=== PATIENT | female | born 1995 | race Two or more races ===

== ENCOUNTER 2025-01-07 20:51 | Emergency (ER) | payer MEDICAID, SELFPAY ==
[2025-01-07 20:53] VITALS: BMI 33.8
[2025-01-07 20:57] VITALS: BP 121/60; PULSE 118; RESP 22; TEMP 36.3; O2SAT 100
--- NOTE | 2025-01-07 21:04 | PD.EDRME ---
Rapid Medical Screening Exam RME Arrival date/time: 01/07/25 20:51 29 yo f present to ED for c/o of n/v I have greeted and performed a focused initial assessment of this patient. A comprehensive ED assessment and evaluation of the patient, analysis of all test results, and completion of the medical decision making process will be conducted by additional ED providers. Chief Complaint: Nausea/Vomiting/Diarrhea Time Seen by Provider: 01/07/25 20:54 Vital signs: Vital Signs Temperature 97.4 F 01/07/25 20:57 Pulse Rate 118 H 01/07/25 20:57 Respiratory Rate 22 H 01/07/25 20:57 Blood Pressure 121/60 01/07/25 20:57 Pulse Oximetry (%) 100 01/07/25 20:57 Oxygen Delivery Method Room Air 01/07/25 20:57
[2025-01-07] MEDS: ONDANSETRON ODT 4 MG TABRAP 8 MG PO (21:20)
[2025-01-07 21:42] LABS: Basophils % (Auto) 0 % (0-2.5); Eosinophils % (Auto) 0 % (0-10); Hematocrit 42.5 % (36.0-46.0); Immature Granulocytes % (Auto) 0 % (0-0); Immature Granulocytes Auto 0.04 Thou/mm3 (0.00-0.00); Lymphocytes # (Auto) 1.1 Thou/mm3 (1.0-4.8); Lymphocytes % (Auto) 7 % (10-50); Mean Corpuscular HGB Conc 35.3 g/dl (31.0-37.0); Mean Corpuscular Hemoglobin 30.9 pg (25.0-35.0); Mean Corpuscular Volume 87 fL (80-100); Monocytes # (Auto) 0.3 Thou/mm3 (0.0-0.8); Monocytes % (Auto) 2 % (0-12); Neutrophils # (Auto) 13.9 Thou/mm3 (1.8-7.7); Neutrophils % (Auto) 90 % (37-80); Nucleated Red Blood Cell % 0 /100 WBC (0); Platelet Count 380 Thou/mm3 (140-440); RDW Standard Deviation 38.3 fL (36.4-46.3); Red Blood Count 4.86 Miln/mm3 (4.00-5.20); White Blood Count 15.4 Thou/mm3 (3.6-11.0)
--- NOTE | 2025-01-07 22:05 | PC.NURSE ---
Initial contacgt with pt. N/V since 04:00 this morning per pt.
[2025-01-07 22:10] LABS: HCG,Qualitative Serum Negative
[2025-01-07 22:12] LABS: Alanine Aminotransferase 10 U/L (10-49); Albumin, Serum 4.8 gm/dL (3.5-5.0); Albumin/Globulin Ratio 1.5 (1.2-2.2); Alcohol, Blood Medical < 3.0 mg/dL (0-10.0); Alkaline Phosphatase 62 U/L (46-116); Anion Gap 12 (7-16); Aspartate Amino Transferase 14 U/L (0-34); BUN/Creatinine Ratio 18 Ratio (12-20); Bilirubin,Total 0.8 mg/dL (0.3-1.2); Blood Urea Nitrogen 11 mg/dL (9-23); Calcium 9.8 mg/dL (8.3-10.6); Calcium (Corrected) 9.8 mg/dL (8.5-10.1); Carbon Dioxide 23.3 mMol/L (20.0-31.0); Chloride 106 mMol/L (98-107); Creatinine (Component) 0.6 mg/dL (0.6-1.3); Estimated Creatinine Clearance 134.8 mL/min (>60); Globulin 3.3 gm/dL (2.3-3.5); Glucose 112 mg/dL (74-106); Lipase 38 U/L (12-53); Osmolality,Calculated 281 (275-295); Potassium 3.7 mMol/L (3.4-5.1); Sodium 141 mMol/L (136-145); Total Protein 8.1 gm/dL (5.7-8.2); eGFR > 60 See Note
[2025-01-07 22:15] VITALS: BP 123/86; PULSE 88; RESP 18; O2SAT 98
[2025-01-07] MEDS: SODIUM CHLORIDE 0.9% 1000 ML 1,000 ML 999 ML IV ×2 (22:15→23:58)
[2025-01-08] VITALS (7 sets, daily range): BP systolic 108–136; BP diastolic 69–94; PULSE 86–115; RESP 18; TEMP 36.8–37.1; O2SAT 97–99
[2025-01-08 00:28] LABS: Amphetamine/Methamp Scrn,U Negative (Negative); Barbiturate Screen,Urine Negative (Negative); Benzodiazepines Screen,Urine Negative (Negative); Benzoylecgonine Screen, Ur Negative (Negative); Fentanyl Screen,Urine Negative (Negative); Opiate Screen,Urine Negative (Negative); THC Screen,Urine Positive (Negative)
--- NOTE | 2025-01-08 01:58 | EDNOTE_ITS ---
Nausea/Vomit./Diarrhea-RME/HPI General Chief complaint: Nausea/Vomiting/Diarrhea Stated complaint: nausea vomiting started yesterday Time Seen by Provider: 01/07/25 20:54 Arrival date/time: 01/07/25 20:51 Limitations: no limitations RME / HPI RME / HPI Narrative: 01/07/25 20:51 29 yo f present to ED for c/o of n/v I have greeted and performed a focused initial assessment of this patient. A comprehensive ED assessment and evaluation of the patient, analysis of all test results, and completion of the medical decision making process will be conducted by additional ED providers. Dr. Garnica's Main ED Evaluation: 29yo female presents to the ED for complaints of nausea and vomiting x 0400. Patient states she woke up at 0400 having persistent nausea and vomiting, reporting her bones feel weak . Patient reports associated constipation and cold sweats. She states she has been unable to keep anything down, so she came in for evaluation. She denies any diarrhea, fever, cough, abdominal pain, back pain or any other associated symptoms. No PMHx or daily medications. Denies any sick contacts. She endorses smoking marijuana. Related Data Home Medications ?Medication ?Instructions ?Recorded ?Confirmed vit no.95-ferrous 1 tab PO QDAY 04/23/2205/30 fumarate 28 mg-folic acid 800 mcg tablet () Previous Rx's ?Medication ?Instructions ?Recorded ondansetron 4 mg disintegrating 4 mg PO Q8H PRN nausea and 01/08/25 tablet vomiting #20 tabs Allergies Allergy/AdvReac Type Severity Reaction Status Date / Time No Known Allergies Allergy Verified 01/07/25 20:57 Review of Systems Review of Systems Systems Reviewed: All systems reviewed, normal except as documented Past Medical History Past Medical History NEUROLOGIC: Negative Neurological Disorders or Seizures CARDIAC: Negative Cardiac Disorders or Congestive Heart Failure RESPIRATORY: Negative Chronic Obstructive Pulmonary Disease (COPD) or Asthma GASTROINTESTINAL: Negative Gastrointestinal Disorders or Hepatitis GENITOURINARY: Negative Genitourinary Disorders or Renal Disease REPRODUCTIVE: Positive Previous Pregnancies; Negative Endometriosis, Genital Herpes, Gonorrhea, Pelvic Inflammatory Disease, Syphilis or Uterine Prolapse MUSCULOSKELETAL: Negative Musculoskeletal Disorders ENDOCRINE: Negative Endocrine Disorders, Diabetes Mellitus Type 1 or Diabetes Mellitus Type 2 HEMATOLOGIC: Negative Blood Disorders or Anemia PSYCHO/SOCIAL: Positive Depression and Anxiety; Negative Depression OTHER HISTORY: Positive Hospitalization and Chicken Pox; Negative Autoimmune Disease, Down Syndrome, Developmental Delay, Shingles, Falls, Blood Transfusions, Blood Transfusion Reaction, Anesthesia Reactions, Organ Transplant, Chemotherapy, Radiation Therapy, Hyperbaric Therapy, MRSA, VRSA, Vancomycin-Resistant Enterococci, Human Immunodeficiency Virus (HIV), Measles, Mumps, Rubella (Serbian Measles), Pertussis, Clostridium Difficile or Cancer Family History FAMILY HISTORY: Negative Family Psychiatric Problems, Family Respiratory Disorders, Family Cardiac Disorders, Family Gastrointestinal Problems, Family Cancer, Family Surgery or Family Anesthesia Reaction Surgical History SURGICAL: Negative Section or Organ Transplant Social History SMOKING STATUS: Never smoker SECOND HAND EXPOSURE: No SUBSTANCE USE: does not use ED Exam General Limitations: Present no limitations General appearance: Present alert and in no apparent distress Head Head exam: Present atraumatic Eye Eye exam: Present normal appearance, PERRL and EOMI ENT ENT exam: Present normal oropharynx and mucous membranes dry Neck Neck exam: Present normal inspection, full ROM and trachea midline Chest Chest inspection: Present normal inspection and symmetric chest wall rise Respiratory Respiratory exam: Present normal lung sounds bilaterally Cardiovascular Cardiovascular exam: Present regular rate, normal rhythm and normal heart sounds Abdominal Exam Abdominal exam: Present soft and normal bowel sounds; Absent distention, tenderness or Patricio's sign Extremities Exam Extremities exam: Present normal inspection and full ROM Back Exam Back exam: Present normal inspection and full ROM; Absent CVA tenderness (R) or CVA tenderness (L) Neurological Exam Neurological exam: Present alert, oriented X3 and CN II-XII intact Psychiatric Psychiatric exam: Present normal affect and normal mood Skin Skin exam: Present warm, dry, intact and normal color Course Quality Measures none Orders Category Date Time Status Bedside Influenza A&B Antigen Test NOW Care 01/07/25 21:03 Completed IV [Insert IV] STAT Care 01/07/25 21:03 Active US gall bladder Stat Exams 01/08/25 02:25 Taken Alcohol, Blood Medical Stat Lab 01/07/25 21:14 Completed CBC Stat Lab 01/07/25 21:14 Completed CMP [Comprehensive Metabolic Panel] Stat Lab 01/07/25 21:14 Completed Drug Screen,Urine Stat Lab 01/07/25 00:00 Completed HCG,Qualitative Serum Stat Lab 01/07/25 21:14 Completed Lipase Stat Lab 01/07/25 21:14 Completed Haloperidol Lactate [Haldol Inj] Med 01/08/25 02:25 Discontinued 5 mg IM X1 ONE Ondansetron Odt [Zofran Odt] Med 01/07/25 21:03 Discontinued 8 mg PO X1 ONE Sodium Chloride 0.9% 1000 ml [Ns] 1,000 ml Med 01/07/25 21:03 Discontinued IV 999 mls/hr Sodium Chloride 0.9% 1000 ml [Ns] 1,000 ml Med 01/07/25 23:52 Discontinued IV 999 mls/hr Vital Signs Vital signs: Vital Signs Temperature 97.4 F 01/07/25 20:57 Pulse Rate 118 H 01/07/25 20:57 Respiratory Rate 22 H 01/07/25 20:57 Blood Pressure 121/60 01/07/25 20:57 Pulse Oximetry (%) 100 01/07/25 20:57 Oxygen Delivery Method Room Air 01/07/25 20:57 Nausea/Vomiting/Diarrhea MDM Narrative MDM Narrative:: Scribe Attestation: 01/08/25 - Latonya Hi am scribing for and in the presence of Dr. Garnica. 0206: Patient is still nauseated. Zofran ordered. Patient data External records reviewed:: [facility] previous records (Per chart review, patient has no relevant previous ED visits.) Clinical information provided by:: patient Social determinants that could affect healthcare access:: none Patient has the following chronic illnesses:: none How is presenting disease/condition affected by chronic disease/condition?: no chronic disease Evaluation data The following diagnostics were reviewed and interpreted by me:: lab results and radiology exam(s) Lab and/or radiology exams considered but not ordered:: none Interpretation Summary: Bedside Influenza is negative, WBC count is 15.4, CMP is normal, Lipase is normal, HCG is negative, UDS is positive for marijuana, Blood Alcohol is negative, according to my interpretation. Telerad Preliminary Report Draft Patient: MARIAN GAMING [facility]. Record#: [id number] Birthdate: 1995 Age/Sex: 29 / F Location: [facility] Attending Dr: Ordering Physician: Date of Service: Procedure(s): Accession Number(s): cc: ~ Gallbladder ultrasound. January 08, 2025 0242 hours Clinical history: Vomiting Findings: The visualized liver is normal in echogenicity. No intrahepatic biliary duct dilatation.. The main portal vein is patent and demonstrates hepatopetal flow. A large echogenic focus is noted within the gallbladder without evidence of gallbladder wall thickening or pericholecystic fluid. The common duct is normal in caliber at 2.3 mm. The pancreas is unremarkable to the extent visualized. The inferior vena cava is unremarkable to the extent visualized. Impression: Gallstone without wall thickening, pericholecystic fluid or biliary dilatation. Report Electronically Signed By: Dwain Jerome 01/08/2025 3:38:57 AM Medications / Prescriptions Medications / Prescriptions considered but not ordered:: none Medication administrations:: Medication Administration History Discontinued Medications Haloperidol Lactate (Haloperidol Lact Inj 5 Mg/Ml Vial) 5 mg IM X1 ONE Stop: 01/08/25 02:26 Last Admin: 01/08/25 02:40 Dose: 5 mg Documented By: LB Sodium Chloride (Ns) 1,000 mls @ 999 mls/hr IV .Q1H1M ONE Stop: 01/07/25 22:03 Last Infusion: 01/07/25 23:16 Dose: Infused Documented By: Admin: 01/07/25 22:15 Dose: 999 mls/hr Documented By: LB Sodium Chloride (Ns) 1,000 mls @ 999 mls/hr IV .Q1H1M ONE Stop: 01/08/25 00:52 Last Infusion: 01/08/25 00:59 Dose: Infused Documented By: Admin: 01/07/25 23:58 Dose: 999 mls/hr Documented By: EF Ondansetron HCl (Ondansetron Odt 4 Mg Tabrap) 8 mg PO X1 ONE; Protocol Stop: 01/07/25 21:04 Last Admin: 01/07/25 21:20 Dose: 8 mg Documented By: see above Consultations Consultation(s) initiated? (list below): No Diagnosis Nausea Differential Diagnosis: other (hyperemesis, dehydration, viral syndrome, gallstones) Most likely diagnosis given after review of the tests above:: see clinical impression below Admission Indicated Admission indicated?: not indicated Admission Request Was there a request for admission?: No Disposition Plan Disposition Plan: Discharge Discharge Attestation Discharge Attestation: The patient and all family members were given an opportunity to ask questions and understood the discharge instructions. Discharge instructions specifically effects, indications for sooner follow up or return to the emergency department, and the expected course of current diagnosis. Patient condition: Stable Discharge Plan Plan Patient Disposition: HOME (Self Care) Patient condition on transfer: Stable Prescriptions/Referrals Prescriptions/Med Rec: New ondansetron 4 mg tablet,disintegrating 4 mg PO Q8H PRN (Reason: nausea and vomiting) Qty: 20 0RF No Action PNV cmb#95-ferrous fumarate-FA [] 28 mg iron- 800 mcg tablet 1 tab PO QDAY Patient Comments: TAKE 1 TABLET BY MOUTH ONCE DAILY Referrals: Dimitri Kitchen MD [Primary Care Provider] - In 1 week Problem List Clinical Impression: Nausea & vomiting, Dehydration Patient/Caregiver Discharge Instructions Education Materials: ED Vomiting (Adult) Additional Instructions: Even though you have been discharged from the Emergency Department, there are several things that you should do to ensure that you receive proper care: 1. DO READ your discharge instructions as these contain important information concerning your medical care. 2. If medication has been prescribed for your condition, fill the prescription as soon as possible and follow the directions on the medication. 3. RETURN AT ONCE TO THE EMERGENCY DEPARTMENT if you have any problems or concerns. These include but are not limited to fever, worsening pain(belly, chest, head, etc?), worsening shortness of breath, inability to tolerate food and water, or any condition that makes you question your well-being. Also, if your symptoms do not improve in the next 12-24 hours, return to the ER or seek medical care immediately. 4. Be sure to follow up with your regular physician or specialist as instructed at discharge as this is the best way to ensure that you receive the very best of care. If you do not have a primary care physician, please contact a physician group and make an appointment. 5. Please visit [employer] for coupons regarding your prescriptions. It is a free service for you to use and can help reduce the cost of your medication. We would like to thank you for coming today and our hope is that we served you and your family well during your stay Print Language: Bulgarian Stand Alone Forms: Melissa Award Info., Patient Portal Info Letter
--- NOTE | 2025-01-08 02:25 | XR_ITS ---
Examination: Abdomen sonogram, Limited Date and time of exam: November 10, 2024 0242 hrs. Indications: Vomiting abdominal pain beginning this morning Technique: Real-time bloom scale transabdominal sonographic images of the upper abdomen obtained. Findings: Cholelithiasis. Normal gallbladder wall 0.1 Common bile duct 0.2 cm Pancreatic head 2.3 cm Liver 12.8 cm no focal liver lesions Normal hepatopedal portal venous flow Patent IVC Impression: Cholelithiasis, negative for cholecystitis
[2025-01-08] MEDS: HALOPERIDOL LACT INJ 5 MG/ML VIAL IM (02:40)
--- NOTE | 2025-01-08 02:44 | PC.NURSE ---
US of the abd at bedside.
--- NOTE | 2025-01-08 03:09 | PC.NURSE ---
Haldol IM effective per pt.
--- NOTE | 2025-01-08 03:39 | PRELIM_ITS ---
Gallbladder ultrasound. January 08, 2025 0242 hours Clinical history: Vomiting Findings: The visualized liver is normal in echogenicity. No intrahepatic biliary duct dilatation.. The main portal vein is patent and demonstrates hepatopetal flow. A large echogenic focus is noted within the gallbladder without evidence of gallbladder wall thickening or pericholecystic fluid. The common duct is normal in caliber at 2.3 mm. The pancreas is unremarkable to the extent visualized. The inferior vena cava is unremarkable to the extent visualized. Impression: Gallstone without wall thickening, pericholecystic fluid or biliary dilatation. Report Electronically Signed By: Dwain Jerome 01/08/2025 3:38:57 AM [EST]
--- NOTE | 2025-01-08 05:49 | PC.NURSE ---
Pt ambulated to BR without any problem. Feels better per pt.
== END 2025-01-08 06:46 | disposition home or self-care (01) ==
PROVIDERS: Physician Assistant; Emergency Provider Emergency Medicine; PCP Family Medicine
DX: E86.0 Dehydration (principal); R11.2 Nausea with vomiting, unspecified; K59.00 Constipation, unspecified
CPT/HCPCS: 36415; 76705; 80053; 80307; 80320; 83690; 84703; 85025; 87400; 96360; 96361; 96372; 99284; J1630; J7030; Q0162; G0480

== ENCOUNTER 2025-05-26 14:02 | Emergency (ER) | payer OTHER, SELFPAY ==
[2025-05-26 14:04] VITALS: BMI 31.8
[2025-05-26 14:25] VITALS: BP 129/77; PULSE 88; RESP 18; TEMP 36.9; O2SAT 99
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
== END 2025-05-26 14:40 | disposition home or self-care (01) ==
LOC: SERX 15:16
PROVIDERS: Emergency Provider Family Medicine
DX: T23.402D Corrosion of unspecified degree of left hand, unspecified site, subsequent encounter (principal); T32.0 Corrosions involving less than 10% of body surface
CPT/HCPCS: 99281